=== PATIENT | female | born 1980 | race Caucasian/White ===

== ENCOUNTER 2024-10-10 23:25 | Emergency (ER) | payer OTHER, SELFPAY ==
[2024-10-10 23:37] VITALS: BP 125/82; PULSE 83; RESP 16; TEMP 36.7; O2SAT 97
--- NOTE | 2024-10-10 23:41 | XRR_ITS ---
PROCEDURE INFORMATION: Exam: XR Left Hand Exam date and time: 10/10/2024 11:51 PM Age: 44 years old Clinical indication: Injury or trauma; Fall; Blunt trauma (contusions or hematomas); Wrist and hand; Left; Additional info: Fall pain TECHNIQUE: Imaging protocol: Radiologic exam of the left hand. Views: 3 or more views. COMPARISON: No relevant prior studies available. FINDINGS: Bones/joints: Normal. Soft tissues: Normal. XR/XR hand LT min 3V* [id number] IMPRESSION: No acute findings.
--- NOTE | 2024-10-10 23:41 | XRR_ITS ---
PROCEDURE INFORMATION: Exam: XR Left Wrist Exam date and time: 10/10/2024 11:53 PM Age: 44 years old Clinical indication: Injury or trauma; Fall; Blunt trauma (contusions or hematomas); Wrist; Left; Additional info: Fall pain TECHNIQUE: Imaging protocol: Radiologic exam of the left wrist. Views: 3 or more views. COMPARISON: CR (UP EXM, ) 10/10/2024 11:51 PM FINDINGS: Bones/joints: Normal. Soft tissues: Normal. XR/XR wrist LT min 3V* [id number] IMPRESSION: No acute findings.
--- NOTE | 2024-10-11 02:32 | W.ED.EXTPRO ---
HPI - Extremity Problem General: Chief complaint: Extremity Injury, Upper Stated complaint: Left arm injury Time Seen by Provider: 10/11/24 02:28 History of Present Illness: Patient slipped in the rain while trying to get into her truck hitting her arm on the side of the truck. Patient's pain is on the ulnar side of her wrist and that radiates into th fourth and fifth digits. Patient has limited range of motion secondary to pain. Mild swelling. No obvious crepitus or deformity. Related Data Allergies Allergy/AdvReac Type Severity Reaction Status Date / Time amlodipine Allergy Unknown Verified 10/10/24 23:41 codeine Allergy Unknown Verified 10/10/24 23:41 sumatriptan [From Imitrex] Allergy Unknown Verified 10/10/24 23:41 terbutaline Allergy Unknown Verified 10/10/24 23:41 tramadol [From Ultram] Allergy Unknown Verified 10/10/24 23:41 Review of Systems General: Reports: 10 or more systems reviewed and unremarkable except in HPI and below Physical Exam Neck/C-Spine: COMMON NORMALS: no JVD Chest: COMMONS NORMALS: normal inspection of the chest and normal palpation of entire chest wall Resp: COMMON NORMALS: normal respiratory effort, No retractions, No use of accessory muscles and clear to auscultation bilaterally AUSCULTATION: clear to auscultation bilaterally Cardio: COMMON NORMALS: no JVD, regular rate, regular rhythm, S1 normal heart sound present, S2 normal heart sound present, No gallops present (Cardio), No clicks present (Cardio), No murmurs present (Cardio) and No rub (Cardio) RATE: regular rate RHYTHM: regular rhythm HEART SOUNDS: S1 normal heart sound present and S2 normal heart sound present GI: COMMON NORMALS: Normal to inspection, nondistended, normoactive bowel sounds present, Soft to palpation, non-tender, No hepatosplenomegaly present and no masses PALPATION: Yes Soft to palpation and Yes No hepatosplenomegaly present Extremity: NARRATIVE EXTREMITY EXAM: Tenderness to the distal forearm wrist area on the ulnar side of the left upper extremity no obvious crepitus deformity noted. Mild swelling mild tenderness with palpation mild limited range of motion secondary to pain. Course Vital Signs: Vital signs: Vital Signs Temperature 98.1 F 10/10/24 23:37 Pulse Rate 83 11/18/24 23:37 Respiratory Rate 16 10/10/24 23:37 Blood Pressure 125/82 10/10/24 23:37 Pulse Oximetry 97 10/10/24 23:37 Oxygen Delivery Me thod Room Air 10/10/24 23:37 MDM - Extremity (Nontraumatic) Medical Decision Making X-rays were negative of the hand and the wrist. Will place the patient in a splint for comfort patient will be discharged home. Medical Records I reviewed the patient's medical records. Lab Data I reviewed the patient's lab results. Radiology Impressions Hand X-Ray 10/10/24 23:41 IMPRESSION: No acute findings. Wrist X-Ray 10/10/24 23:41 IMPRESSION: No acute findings. All radiology interpretation(s) finalized by discharge Discharge Plan Discharge Patient Disposition: Home Clinical Impression: Sprain and strain of wrist Condition: Stable Discharge Orders: Discharge ED (Routine); Ordered 10/11/24 Ordered By: yTron Jackson Referrals: Bharathi Smith MD [Primary Care Provider] - 1 week Patient Instructions: Wrist Sprain (ED) Activity Restrictions/Additional Instructions: Your x-rays of your wrist and hand showed no acute fracture. You are placed in a splint for comfort. Please wear it for the next 2 to 3 days and then trial without it. Please advance using your left hand and wrist as tolerated. Please follow-up with your family practice physician within next 7 to 10 days for further evaluation and treatment if needed. 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
[2024-10-11 02:49] VITALS: BP 147/89; PULSE 77; O2SAT 98
== END 2024-10-11 02:51 | disposition home or self-care (01) ==
PROVIDERS: Emergency Provider Emergency Medicine
DX: S63.502A Unspecified sprain of left wrist, initial encounter (principal); W01.198A Fall on same level from slipping, tripping and stumbling with subsequent striking against other object, initial encounter
CPT/HCPCS: 73110; 73130; 99283